=== PATIENT | female | born 1985 | race Caucasian/White ===

== ENCOUNTER 2020-03-22 13:17 | Emergency (ER) | payer MEDICAID ==
[~2020-03-22] VITALS: Ht 170.2 cm; Wt 90.7 kg
[2020-03-22 13:35] VITALS: BP_SYST 127
--- NOTE | 2020-03-22 17:00 | NUR ---
Patient was seen in OB, treated and discharged by Dr. Jaramillo
== END 2020-03-22 17:00 | disposition home or self-care (01) ==
LOC: SED 13:17
DX: O21.8 Other vomiting complicating pregnancy (principal); Z3A.24 24 weeks gestation of pregnancy
CPT/HCPCS: 99281

== ENCOUNTER 2020-03-22 13:45 | Observation (INO) | payer MEDICAID ==
[~2020-03-22] VITALS: Ht 162.6 cm; Wt 98.9 kg
== END 2020-03-22 15:15 | disposition home or self-care (01) ==
LOC: SPU 13:45
PROVIDERS: ADMIT Specialist; ATTEND Specialist
DX: O21.2 Late vomiting of pregnancy (principal); O36.8120 Decreased fetal movements, second trimester, not applicable or unspecified; Z3A.24 24 weeks gestation of pregnancy
CPT/HCPCS: 81002; 99281; G0378